=== PATIENT | female | born 1980 | race Caucasian/White ===

== ENCOUNTER 2018-07-13 05:15 | Inpatient (IN) | payer OTHER ==
[2018-07-11 13:34] LABS: BILIRUBIN,URINE NEGATIVE (NEGATIVE); BLOOD, URINE NEGATIVE (NEGATIVE); COLOR,URINE YELLOW (YELLOW); GLUCOSE,URINE NEGATIVE (NEGATIVE); KETONES,URINE NEGATIVE (NEGATIVE); LEUKOCYTE ESTERASE ,URINE 1+ (NEGATIVE); NITRITE, URINE NEGATIVE (NEGATIVE); PROTEIN URINE NEGATIVE (NEGATIVE); UROBILINOGEN,URINE 0.2 (0.2-1.0)
[2018-07-11 13:37] LABS: CLARITY/URINE HAZY (CLEAR)
[2018-07-11 13:40] LABS: BACTERIA,URINE MODERATE /HPF (None Seen); MUCUS,URINE 1+ /LPF (None Seen); RBC,URINE NONE SEEN /HPF (0-3); WBC,URINE 0-3 /HPF (0-3)
[2018-07-11 13:43] LABS: BASOPHILS % (AUTO) 0.8 % (0.0-2.0); EOSINOPHILS % (AUTO) 1.4 % (0.0-4.0); HEMATOCRIT 38.3 % (36-48); LYMPHOCYTES % (AUTO) 21.3 % (20.5-51.5); MEAN CORPUSCULAR HEMOGLOBIN 31 pg (27-31); MEAN CORPUSCULAR HGB CONC 34 % (32-36); MEAN CORPUSCULAR VOLUME 90 fL (79.0-98.0); MONOCYTES % (AUTO) 9.7 % (1.7-9.3); NEUTROPHILS # (AUTO) 6.3 K/uL (1.8-7.7); NEUTROPHILS % (AUTO) 66.8 % (40.0-70.0); PLATELET COUNT (AUTO) 222 K/uL (130-430); RED BLOOD CELL COUNT(AUTO) 4.25 MIL/uL (4.2-6.2); RED CELL DISTRIBUTION WIDTH 13.4 % (9.0-15.0); WHITE BLOOD COUNT (AUTO) 9.4 K/uL (4.8-10.8)
[2018-07-11 13:44] LABS: BASOPHILS # (AUTO) 0.1 K/uL (0.0-0.2); EOSINOPHILS # (AUTO) 0.1 K/uL (0.0-0.4); MONOCYTES # (AUTO) 0.9 K/uL (0.0-1.0)
[~2018-07-13] VITALS: Ht 157.5 cm; Wt 78.0 kg
[2018-07-13] MEDS ORDERED: LR 1,000 ML IV SCH ×3 (05:29→08:44)
[2018-07-13] MEDS ORDERED: CEFAZOLIN 2 GM IVPB PREMIX 50 ML IV ONE (05:30)
[2018-07-13 05:40] VITALS: BP_SYST 140
[2018-07-13] MEDS ORDERED: WATER FOR IRRIGATION,STERILE 1,000 ML IRRIG.SOLN IR ONE (07:30)
[2018-07-13] MEDS ORDERED: CLINDAMYCIN 900 mg/50mL D5W 50 ML IV ONE (07:30)
[2018-07-13] MEDS ORDERED: MIDAZOLAM HCL 5 MG/5 ML VIAL IVP ONE (07:30)
[2018-07-13] MEDS ORDERED: ePHEDrine sulfate 50 MG/ML VIAL IVP ONE (07:30)
[2018-07-13] MEDS ORDERED: ONDANSETRON HCL 4 MG/2 ML VIAL IVP ONE (07:30)
[2018-07-13] MEDS ORDERED: MORPHINE SULFATE 10MG/10ML PF AMP EP ONE (07:30)
[2018-07-13] MEDS ORDERED: CLINDAMYCIN PHOSPHATE 900 mg/50mL D5W IV ONE (07:30)
[2018-07-13] MEDS ORDERED: OXYTOCIN 10 UNIT/ML VIAL IV ONE (07:30)
[2018-07-13] MEDS ORDERED: LR 500 ML IV SCH (08:17)
[2018-07-13] MEDS ORDERED: METOCLOPRAMIDE HCL 10 MG/2 ML VIAL IVP PRN (08:30)
[2018-07-13] MEDS ORDERED: DIPHENHYDRAMINE INJ 50 MG/ML VIAL IM PRN (08:30)
[2018-07-13] MEDS ORDERED: KETOROLAC TROMETHAMINE 60 MG/2 ML VIAL IM PRN (08:30)
[2018-07-13] MEDS ORDERED: ONDANSETRON HCL 4 MG/2 ML VIAL IVP PRN (08:30)
[2018-07-13] MEDS ORDERED: MORPHINE SULFATE 10MG/10ML PF AMP SP SCH (08:30)
[2018-07-13] MEDS ORDERED: NALOXONE HCL 0.4 MG/ML AMP (NARCAN) IVP PRN (08:30)
[2018-07-13] MEDS ORDERED: OXYTOCIN/0.9 % SODIUM CHLORIDE 1,000 ML IV ONE ×2 (08:44→09:09)
[2018-07-13] MEDS ORDERED: RHO(D) IMMUNE GLOBULIN/MALTOSE 1500 UNITS/1.3 ML (WINHRO) IM PRN (08:45)
[2018-07-13] MEDS ORDERED: OXYCODONE/ACETAMINOPHEN 5-325 TABLET PO PRN (08:45)
[2018-07-13] MEDS ORDERED: LANOLIN 7 GM OINT. TP PRN (08:45)
[2018-07-13] MEDS ORDERED: DIPH-TET-PERTUS Vaccine 0.5 ML VIAL (ADACEL) I.M. PRN (08:45)
[2018-07-13] MEDS ORDERED: BISACODYL 10 MG/SUPPOSITORY RC PRN (08:45)
[2018-07-13] MEDS ORDERED: ANUSOL 1 EA SUPP.RECT (PREPARATION H) RC PRN (08:45)
[2018-07-13] MEDS ORDERED: MEASLES,MUMPS&RUBELLA VACC/PF 12500 UNIT/0.5 ML VIAL SUBQ PRN (08:45)
[2018-07-13 08:50] VITALS: BP_SYST 129
[2018-07-13] MEDS ORDERED: DIPHENHYDRAMINE INJ 50 MG/ML VIAL ONE (09:09)
[2018-07-13] MEDS ORDERED: TEMAZEPAM 15 MG CAPSULE PO PRN (21:00)
[2018-07-14] MEDS: IBUPROFEN 600 MG TABLET PO SCH ×4 (00:03→18:30)
[2018-07-14] MEDS: OXYCODONE/ACETAMINOPHEN 5-325 TABLET PO PRN ×5 (01:02→20:37)
[2018-07-14] MEDS: SIMETHICONE 80 MG TAB.CHEW PO PRN ×4 (01:07→18:30)
[2018-07-14 08:10] LABS: HEMATOCRIT 30.7 % (36-48); HEMOGLOBIN 10.3 g/dL (12.0-16.0); LYMPHOCYTES % (AUTO) 12.4 % (20.5-51.5); MEAN CORPUSCULAR HEMOGLOBIN 31 pg (27-31); MEAN CORPUSCULAR HGB CONC 34 % (32-36); MEAN CORPUSCULAR VOLUME 91 fL (79.0-98.0); MONOCYTES % (AUTO) 9.2 % (1.7-9.3); NEUTROPHILS % (AUTO) 76.7 % (40.0-70.0); PLATELET COUNT (AUTO) 179 K/uL (130-430); RED BLOOD CELL COUNT(AUTO) 3.38 MIL/uL (4.2-6.2); RED CELL DISTRIBUTION WIDTH 13.7 % (9.0-15.0); WHITE BLOOD COUNT (AUTO) 11.7 K/uL (4.8-10.8)
[2018-07-14 08:11] LABS: BASOPHILS % (AUTO) 0.2 % (0.0-2.0); EOSINOPHILS # (AUTO) 0.2 K/uL (0.0-0.4); EOSINOPHILS % (AUTO) 1.5 % (0.0-4.0); LYMPHOCYTES # (AUTO) 1.5 K/uL (1.0-5.5); MONOCYTES # (AUTO) 1.1 K/uL (0.0-1.0)
[2018-07-14] MEDS: DOCUSATE SODIUM 100 MG CAPSULE PO PRN ×2 (12:50→18:30)
[2018-07-14] MEDS: SENNOSIDES/DOCUSATE SODIUM 1 TAB TABLET(SENOKOT-S) PO PRN ×2 (12:50→18:30)
[2018-07-15] MEDS: OXYCODONE/ACETAMINOPHEN 5-325 TABLET PO PRN (00:20)
[2018-07-15] MEDS: DOCUSATE SODIUM 100 MG CAPSULE PO PRN ×2 (06:15→09:39)
[2018-07-15] MEDS: IBUPROFEN 600 MG TABLET PO SCH ×2 (06:15)
[2018-07-15] MEDS: SIMETHICONE 80 MG TAB.CHEW PO PRN (09:40)
== END 2018-07-15 14:51 | disposition home or self-care (01) | DRG 787 ==
LOC: SPU 05:15
PROVIDERS: ADMIT Obstetrics & Gynecology; ATTEND Obstetrics & Gynecology
PROC: 10D00Z1 Extraction of Products of Conception, Low, Open Approach (ICD-10-PCS; principal; 2018-07-13 07:30)
DX: O36.63X0 Maternal care for excessive fetal growth, third trimester, not applicable or unspecified (principal); D62 Acute posthemorrhagic anemia; O75.89 Other specified complications of labor and delivery; M41.9 Scoliosis, unspecified; Z3A.39 39 weeks gestation of pregnancy; Z37.0 Single live birth; Z88.0 Allergy status to penicillin; Z82.49 Family history of ischemic heart disease and other diseases of the circulatory system
CPT/HCPCS: 36415; 81000-TC; 85025; 86592; 86886; 86900; 86901; 94760; J1200; J1885; J2250; J2274; J2405; J2590; J3490; J7120

== ENCOUNTER 2020-12-08 10:00 | Outpatient (CLI) | payer OTHER ==
[2020-12-08 13:51] LABS: BASOPHILS % (AUTO) 0.4 % (0.0-2.0); EOSINOPHILS % (AUTO) 0.4 % (0.0-4.0); HEMATOCRIT 37.5 % (36-48); HEMOGLOBIN 12.7 g/dL (12.0-16.0); LYMPHOCYTES # (AUTO) 1.8 K/uL (1.0-5.5); LYMPHOCYTES % (AUTO) 18.7 % (20.5-51.5); MEAN CORPUSCULAR HEMOGLOBIN 30 pg (27-31); MEAN CORPUSCULAR HGB CONC 34 % (32-36); MEAN CORPUSCULAR VOLUME 89 fL (79.0-98.0); MONOCYTES # (AUTO) 0.8 K/uL (0.0-1.0); MONOCYTES % (AUTO) 7.9 % (1.7-9.3); NEUTROPHILS # (AUTO) 7.2 K/uL (1.8-7.7); NEUTROPHILS % (AUTO) 72.6 % (40.0-70.0); PLATELET COUNT (AUTO) 228 K/uL (130-430); RED BLOOD CELL COUNT(AUTO) 4.24 MIL/uL (4.2-6.2); RED CELL DISTRIBUTION WIDTH 15.1 % (9.0-15.0); WHITE BLOOD COUNT (AUTO) 9.9 K/uL (4.8-10.8)
[2020-12-08 14:07] LABS: BILIRUBIN,URINE NEGATIVE (NEGATIVE); BLOOD, URINE NEGATIVE (NEGATIVE); COLOR,URINE YELLOW (YELLOW); GLUCOSE,URINE NEGATIVE (NEGATIVE); KETONES,URINE TRACE (NEGATIVE); LEUKOCYTE ESTERASE ,URINE NEGATIVE (NEGATIVE); NITRITE, URINE NEGATIVE (NEGATIVE); PROTEIN URINE NEGATIVE (NEGATIVE); UROBILINOGEN,URINE 0.2 (0.2-1.0)
[2020-12-08 14:12] LABS: CLARITY/URINE SLIGHTLY HAZY (CLEAR)
== END 2020-12-08 11:00 | disposition home or self-care (01) ==
LOC: CANPREIN → SLB 10:00 → EDSTATUS 12-11 07:30
PROVIDERS: ATTEND Specialist
DX: Z01.812 Encounter for preprocedural laboratory examination (principal)
CPT/HCPCS: 36415; 81003; 85025; 86886; 86900; 86901; U0003

== ENCOUNTER 2020-12-08 16:08 | Inpatient (IN) | payer OTHER, SELFPAY ==
[~2020-12-08] VITALS: Ht 157.5 cm; Wt 79.8 kg
[2020-12-08] MEDS ORDERED: CLINDAMYCIN 900 mg/50mL D5W 50 ML IV ONE (16:30)
[2020-12-08] MEDS ORDERED: LR 1,000 ML IV ONE (16:30)
[2020-12-08] MEDS ORDERED: MORPHINE SULFATE 10MG/10ML PF AMP EP ONE (19:35)
[2020-12-08] MEDS ORDERED: LR 1,000 ML IV.SOLN IV ONE (19:35)
[2020-12-08] MEDS ORDERED: MIDAZOLAM HCL 5 MG/5 ML VIAL IVP ONE (19:35)
[2020-12-08] MEDS ORDERED: BUPIVACAINE /DEX PF 0.75% SPINAL 2 ML AMP INJ ONE (19:35)
[2020-12-08] MEDS ORDERED: fentaNYL CITRATE/PF 100 MCG/2 ML AMP IVP PRN ×2 (20:30)
[2020-12-08] MEDS ORDERED: KETOROLAC TROMETHAMINE 60 MG/2 ML VIAL IM PRN (20:30)
[2020-12-08] MEDS ORDERED: NALOXONE HCL 0.4 MG/ML AMP (NARCAN) IVP PRN ×3 (20:30→21:00)
[2020-12-08] MEDS ORDERED: DIPHENHYDRAMINE INJ 50 MG/ML VIAL IVP PRN (20:30)
[2020-12-08] MEDS ORDERED: ONDANSETRON HCL 4 MG/2 ML VIAL IVP PRN ×2 (20:30)
[2020-12-08] MEDS ORDERED: NALBUPHINE HCL 10 MG/ML AMP IVP PRN (20:30)
[2020-12-08] MEDS ORDERED: METOCLOPRAMIDE HCL 10 MG/2 ML VIAL IVP PRN (20:30)
[2020-12-08] MEDS ORDERED: MORPHINE SULFATE 10MG/10ML PF AMP SP SCH (20:30)
[2020-12-08] MEDS ORDERED: DIPH-TET-PERTUS Vaccine 0.5 ML VIAL (ADACEL) I.M. PRN (21:00)
[2020-12-08] MEDS ORDERED: TEMAZEPAM 15 MG CAPSULE PO PRN (21:00)
[2020-12-08] MEDS ORDERED: RHO(D) IMMUNE GLOBULIN/MALTOSE 1500 UNITS/1.3 ML (WINHRO) IM PRN (21:00)
[2020-12-08] MEDS ORDERED: ANUSOL 1 EA SUPP.RECT (PREPARATION H) RC PRN (21:00)
[2020-12-08] MEDS ORDERED: HYDROcodone/ACETAMIN 5-325 MG TAB (NORCO/ VICODIN) PO PRN (21:00)
[2020-12-08] MEDS ORDERED: MEASLES,MUMPS&RUBELLA VACC/PF 12500 UNIT/0.5 ML VIAL SUBQ PRN (21:00)
[2020-12-08] MEDS ORDERED: LR 1,000 ML IV SCH (21:00)
[2020-12-08] MEDS ORDERED: BISACODYL 10 MG/SUPPOSITORY RC PRN (21:00)
[2020-12-08] MEDS ORDERED: LANOLIN 7 GM OINT. TP PRN (21:00)
[2020-12-08] MEDS: KETOROLAC TROMETHAMINE 30 MG VIAL IVP SCH (23:48)
[2020-12-08] MEDS: DOCUSATE SODIUM 100 MG CAPSULE PO SCH (23:48)
[2020-12-08] MEDS: SENNOSIDES/DOCUSATE SODIUM 1 TAB TABLET(SENOKOT-S) PO SCH (23:55)
[2020-12-08] MEDS: SIMETHICONE 80 MG TAB.CHEW PO PRN (23:55)
[2020-12-08] MEDS: OXYTOCIN/0.9 % SODIUM CHLORIDE 1,000 ML IV SCH (23:59)
[2020-12-09] MEDS ORDERED: CLINDAMYCIN 600 mg/50mL D5W 50 ML IV ONE (00:58)
[2020-12-09] MEDS: CLINDAMYCIN 600 MG in D5W 50 ML IV SCH ×2 (01:39→08:08)
[2020-12-09 07:40] LABS: BASOPHILS % (AUTO) 0.2 % (0.0-2.0); EOSINOPHILS % (AUTO) 0.4 % (0.0-4.0); HEMATOCRIT 30.3 % (36-48); HEMOGLOBIN 10.2 g/dL (12.0-16.0); LYMPHOCYTES # (AUTO) 1.6 K/uL (1.0-5.5); LYMPHOCYTES % (AUTO) 12.4 % (20.5-51.5); MEAN CORPUSCULAR HEMOGLOBIN 30 pg (27-31); MEAN CORPUSCULAR HGB CONC 34 % (32-36); MEAN CORPUSCULAR VOLUME 88 fL (79.0-98.0); MONOCYTES % (AUTO) 8.2 % (1.7-9.3); NEUTROPHILS # (AUTO) 10.1 K/uL (1.8-7.7); NEUTROPHILS % (AUTO) 78.8 % (40.0-70.0); PLATELET COUNT (AUTO) 176 K/uL (130-430); RED BLOOD CELL COUNT(AUTO) 3.45 MIL/uL (4.2-6.2); RED CELL DISTRIBUTION WIDTH 15.1 % (9.0-15.0); WHITE BLOOD COUNT (AUTO) 12.8 K/uL (4.8-10.8)
[2020-12-09] MEDS: DOCUSATE SODIUM 100 MG CAPSULE PO SCH ×2 (09:53→20:42)
[2020-12-09] MEDS: SIMETHICONE 80 MG TAB.CHEW PO PRN ×3 (09:54→20:42)
[2020-12-09] MEDS: OXYTOCIN/0.9 % SODIUM CHLORIDE 1,000 ML IV SCH (09:56)
[2020-12-09] MEDS: KETOROLAC TROMETHAMINE 30 MG VIAL IVP SCH ×2 (12:09→17:56)
[2020-12-09] MEDS: SENNOSIDES/DOCUSATE SODIUM 1 TAB TABLET(SENOKOT-S) PO SCH (20:42)
[2020-12-09] MEDS: OXYCODONE/ACETAMINOPHEN 5-325 TABLET PO PRN (20:42)
[2020-12-09] MEDS: IBUPROFEN 600 MG TABLET PO SCH (23:59)
[2020-12-10] MEDS: OXYCODONE/ACETAMINOPHEN 5-325 TABLET PO PRN ×5 (00:57→16:55)
[2020-12-10 05:27] VITALS: BP_SYST 107
[2020-12-10] MEDS: IBUPROFEN 600 MG TABLET PO SCH ×3 (05:38→18:11)
[2020-12-10] MEDS: SIMETHICONE 80 MG TAB.CHEW PO PRN ×4 (05:39→20:00)
[2020-12-10] MEDS: DOCUSATE SODIUM 100 MG CAPSULE PO SCH (08:12)
[2020-12-10] MEDS: OXYCODONE/ACETAMINOPHEN *10*mg/325 mg TABLET PO PRN ×2 (13:09→20:00)
== END 2020-12-10 20:15 | disposition home or self-care (01) | DRG 785 ==
LOC: SPU 16:08 → OBSVTOIN 16:08
PROVIDERS: ADMIT Specialist; ATTEND Specialist
PROC: 0UB70ZZ Excision of Bilateral Fallopian Tubes, Open Approach (ICD-10-PCS; 2020-12-08)
PROC: 10D00Z1 Extraction of Products of Conception, Low, Open Approach (ICD-10-PCS; principal; 2020-12-08 18:30)
DX: O34.211 Maternal care for low transverse scar from previous cesarean delivery (principal); Z20.822 Contact with and (suspected) exposure to COVID-19; Z30.2 Encounter for sterilization; Z37.0 Single live birth; Z3A.38 38 weeks gestation of pregnancy
CPT/HCPCS: 36415; 85025; 88305; 94760; J1885; J2250; J2274; J2405; J2590; J3490; J7060; J7120